=== PATIENT | male | born 2000 | race Caucasian/White ===

== ENCOUNTER → 2023-05-07 16:05 | Outpatient (REF) | payer BC, SELFPAY | LOC: RAD 16:05 | PROVIDERS: ATTENDING PHYSICIAN Nurse Practitioner Family | DX: S69.92XA Unspecified injury of left wrist, hand and finger(s), initial encounter (principal) | CPT/HCPCS: 73130 ==

== ENCOUNTER → 2025-01-14 10:29 | Outpatient (REF) | payer OTHER, SELFPAY | LOC: MRI 3T 10:29 | PROVIDERS: ATTENDING PHYSICIAN Physician Assistant Medical; FAMILY PHYSICIAN Family Medicine | DX: G44.52 New daily persistent headache (NDPH) (principal) | CPT/HCPCS: 70553; A9575 ==